=== PATIENT | female | born 1960 | race Caucasian/White ===

== ENCOUNTER 2021-10-31 07:39 | Day surgery (SDC) | payer BC ==
[~2021-10-31] VITALS: Ht 165.1 cm; Wt 120.2 kg
[2021-10-31] MEDS: MEPERIDINE 100 MG INJ. 100 MG/ML VIAL ONE ×3 (09:17→09:39)
[2021-10-31] MEDS: MIDAZOLAM HCL 5 MG/5 ML VIAL ONE ×4 (09:17→09:23)
[2021-10-31] MEDS ORDERED: MIDAZOLAM HCL 5 MG/5 ML VIAL ONE (09:42)
[2021-10-31 13:24] VITALS: BP_SYST 90
== END 2021-10-31 11:00 | disposition home or self-care (01) ==
LOC: SDS 07:39 → SMU 07:43 → SDS 11:00
PROVIDERS: ATTEND Internal Medicine Gastroenterology
DX: K21.00 Gastro-esophageal reflux disease with esophagitis, without bleeding (principal); K57.30 Diverticulosis of large intestine without perforation or abscess without bleeding; K64.8 Other hemorrhoids; K29.50 Unspecified chronic gastritis without bleeding; K44.9 Diaphragmatic hernia without obstruction or gangrene; Z85.3 Personal history of malignant neoplasm of breast; Z85.42 Personal history of malignant neoplasm of other parts of uterus; Z79.899 Other long term (current) drug therapy; Z20.822 Contact with and (suspected) exposure to COVID-19
CPT/HCPCS: 36415 ×2; 43239; 45330; 87426; 87081; 82962; 88305; 88312; 88313; 99152; 99153; U0003; G0378; J2250; J2175; G0104